=== PATIENT | female | born 1990 | race Two or more races ===

== ENCOUNTER 2021-04-11 11:17 | Outpatient (CLI) | payer OTHER | END 2021-04-11 12:11 | disposition home or self-care (01) | LOC: PRENATAL 11:17 | PROVIDERS: ATTEND Obstetrics & Gynecology Maternal & Fetal Medicine | DX: O26.842 Uterine size-date discrepancy, second trimester (principal); O26.852 Spotting complicating pregnancy, second trimester; Z36.89 Encounter for other specified antenatal screening; Z3A.16 16 weeks gestation of pregnancy ==

== ENCOUNTER 2021-05-16 13:23 | Outpatient (CLI) | payer OTHER | END 2021-05-16 14:52 | disposition home or self-care (01) | LOC: PRENATAL 13:23 | PROVIDERS: ATTEND Obstetrics & Gynecology Maternal & Fetal Medicine | DX: O35.0XX1 Maternal care for (suspected) central nervous system malformation in fetus, fetus 1 (principal); O35.3XX1 Maternal care for (suspected) damage to fetus from viral disease in mother, fetus 1; O98.512 Other viral diseases complicating pregnancy, second trimester; Z36.89 Encounter for other specified antenatal screening; Z3A.21 21 weeks gestation of pregnancy ==

== ENCOUNTER 2021-08-08 12:49 | Outpatient (CLI) | payer OTHER | END 2021-08-08 13:49 | disposition home or self-care (01) | LOC: PRENATAL 12:49 | PROVIDERS: ATTEND Obstetrics & Gynecology Maternal & Fetal Medicine | DX: O26.849 Uterine size-date discrepancy, unspecified trimester (principal); O35.0XX0 Maternal care for (suspected) central nervous system malformation in fetus, not applicable or unspecified; Z3A.32 32 weeks gestation of pregnancy ==

== ENCOUNTER 2021-08-31 13:45 | Inpatient (IN) | payer OTHER ==
[~2021-08-31] VITALS: Ht 170.2 cm; Wt 3.2 kg
[2021-09-23] MEDS ORDERED: PRENATAL TABLE1 EAC1 PO (01:32)
[2021-09-30] MEDS ORDERED: FUSION PLUS CA1 EACH PO (07:32)
[2021-09-30] MEDS ORDERED: SIMETHICONE80 MG PO (07:32)
[2021-09-30] MEDS ORDERED: COLACE100 MG PO (07:32)
[2021-09-30] MEDS ORDERED: IBU800 MG PO (07:33)
== END 2021-09-30 11:46 | disposition home or self-care (01) | DRG 785 ==
LOC: OB/GYN 09-27 06:51 → LDR 09-27 06:51 → O/R 09-27 06:51 → LDR 09-27 06:55 → O/R 09-27 14:05 → OB/GYN 09-27 16:59 → LDR 10-03 13:45
PROVIDERS: Student in an Organized Health Care Education/Training Program; ADMIT Obstetrics & Gynecology; ATTEND Obstetrics & Gynecology
PROC: 0UB70ZZ Excision of Bilateral Fallopian Tubes, Open Approach (ICD-10-PCS; 2021-09-27)
PROC: 4A1HXCZ Monitoring of Products of Conception, Cardiac Rate, External Approach (ICD-10-PCS; 2021-09-27)
PROC: 10D00Z1 Extraction of Products of Conception, Low, Open Approach (ICD-10-PCS; principal; 2021-09-27 15:15)
DX: O32.8XX0 Maternal care for other malpresentation of fetus, not applicable or unspecified (principal); Z3A.39 39 weeks gestation of pregnancy; Z37.0 Single live birth; Z20.822 Contact with and (suspected) exposure to COVID-19; Z30.2 Encounter for sterilization

== ENCOUNTER 2021-09-23 01:09 | Outpatient (CLI) | payer OTHER ==
[2021-09-23] MEDS ORDERED: PRENATAL TABLE1 EAC1 PO (01:32)
== END 2021-09-23 09:23 | disposition home or self-care (01) ==
LOC: OBS/DEL 01:09
PROVIDERS: ATTEND Student in an Organized Health Care Education/Training Program
DX: O47.1 False labor at or after 37 completed weeks of gestation (principal); Z3A.38 38 weeks gestation of pregnancy